=== PATIENT | male | born 1950 | race Caucasian/White ===

== ENCOUNTER 2018-10-20 07:53 | Day surgery (SDC) | payer MEDICARE, OTHER ==
[2018-10-20] MEDS ORDERED: PROPOFOL 20 ML (09:40)
[2018-10-20] MEDS ORDERED: FENTAnyl 50 MCG/ML VIAL (09:41)
== END 2018-10-20 12:42 | disposition home or self-care (01) ==
LOC: GIL 07:53
DX: Z12.11 Encounter for screening for malignant neoplasm of colon (principal); K57.30 Diverticulosis of large intestine without perforation or abscess without bleeding; K64.8 Other hemorrhoids; Z85.038 Personal history of other malignant neoplasm of large intestine
CPT/HCPCS: 45378